=== PATIENT | female | born 1995 | race Caucasian/White ===

== ENCOUNTER 2024-04-06 23:55 | Inpatient (IN) | payer OTHER ==
[~2024-04-06] VITALS: Ht 170.2 cm; Wt 127.9 kg
[2024-04-07] MEDS ORDERED: LACTATED RINGER'S 1,000 ML IV SCH
[2024-04-07] MEDS ORDERED: miSOPROStoL 25 MCG TAB PV SCH
[2024-04-07] MEDS ORDERED: CALCIUM CARBONATE 500 MG CHEW PO PRN
[2024-04-07] MEDS ORDERED: MAGNESIUM HYDROXIDE/AL HYDROX 30 ML CUP PO PRN
[2024-04-07] MEDS ORDERED: OXYTOCIN/0.9 % SODIUM CHLORIDE 30 UNITS/500 ML BAG IV SCH (00:45)
[2024-04-07 00:49] LABS: HEMATOCRIT 38.1 % (35.0-50.0); HEMOGLOBIN 12.9 g/dL (12.0-18.0); MCH 27.3 (27-36); MCHC 33.8 g/dl (30-36); MCV 80.7 fl (81-99); RBC 4.72 M/ul (4.3-5.7); RDW 15.3 (10.5-15.0)
[2024-04-07 01:06] VITALS: BP 133/64
[2024-04-07 01:09] LABS: AMPHETAMINES, URINE NEGATIVE (NEGATIVE); BARBITURATES, URINE NEGATIVE (NEGATIVE); BENZODIAZEPINE, URINE NEGATIVE (NEGATIVE); BUPRENORPHINE, URINE NEGATIVE (NEGATIVE); CANNABINOID, URINE NEGATIVE (NEGATIVE); COCAINE, URINE NEGATIVE (NEGATIVE); ECSTASY, URINE NEGATIVE (NEGATIVE); FENTANYL, URINE NEGATIVE (NEGATIVE); METHADONE, URINE NEGATIVE (NEGATIVE); OPIATES, URINE NEGATIVE (NEGATIVE); OXYCODONE, URINE NEGATIVE (NEGATIVE); PHENCYCLIDINE, URINE NEGATIVE (NEGATIVE)
[2024-04-07 02:00] LABS: ABO A; ANTIBODY IDENTIFICATION ANTI-D; ANTIBODY SCREEN POSITIVE; RH NEGATIVE
[2024-04-07] MEDS ORDERED: fentaNYL citrate 100 MCG/2 ML VIAL IV PRN (09:00)
[2024-04-07] MEDS ORDERED: OXYTOCIN/0.9 % SODIUM CHLORIDE 500 ML IV SCH (09:00)
[2024-04-07] MEDS ORDERED: ePHEDrine KIT FOR FBC IV ONE (12:54)
[2024-04-07] MEDS ORDERED: LACTATED RINGER'S 500 ML IV PRN (13:00)
[2024-04-07] MEDS ORDERED: LACTATED RINGER'S 2,000 ML IV ONE (13:00)
[2024-04-07] MEDS ORDERED: ROPIVACAINE 0.2% 200 ML BAG EPIDURAL SCH (13:00)
[2024-04-07] MEDS ORDERED: ePHEDrine sulfate 5 MG/ML SYRINGE IV PRN (13:00)
[2024-04-07] MEDS ORDERED: dexmedeTOMIDine HCl 200 MCG/2 ML VIAL ONE (13:07)
[2024-04-07] MEDS ORDERED: ROPIVACAINE 0.2% 200 ML BAG ONE (13:07)
[2024-04-07] MEDS ORDERED: MAGNESIUM SULFATE 2 GM/50 ML BAG IV ONE (18:30)
[2024-04-07] MEDS ORDERED: ondansetron HCL 4 MG/2 ML VIAL IV SCH (20:00)
[2024-04-07] MEDS ORDERED: ondansetron HCL 4 MG/2 ML VIAL IV ONE (22:30)
[2024-04-08] MEDS ORDERED: TRANEXAMIC ACID IN NACL,ISO-OS 100 ML IV ONE (01:16)
[2024-04-08] MEDS ORDERED: METHYLERGONOVINE MALEATE 0.2 MG/ML AMP IM ONE ×2 (01:19→02:00)
[2024-04-08] MEDS ORDERED: miSOPROStoL 200 MCG TAB PR ONE (01:20)
[2024-04-08] MEDS ORDERED: TRANEXAMIC ACID 1,000 MG in SODIUM CHLORIDE 0.9% 100 ML IV ONE (01:21)
[2024-04-08] MEDS ORDERED: HYDROCODONE/ACETA 5/325 TAB PO PRN (02:00)
[2024-04-08] MEDS ORDERED: IBUPROFEN 600 MG TAB PO PRN (02:00)
[2024-04-08] MEDS ORDERED: HYDROCORTISONE ACETATE 25 MG SUPP PR PRN (02:00)
[2024-04-08] MEDS ORDERED: OXYCODONE HCL 5 MG TAB PO PRN (02:00)
[2024-04-08] MEDS ORDERED: WITCH HAZEL/GLYCERIN 1 EA PAD TOP PRN (02:00)
[2024-04-08] MEDS ORDERED: LIDOCAINE 2% VISCOUS 6 ML SYR TOP ONE ×2 (02:00)
[2024-04-08] MEDS ORDERED: miSOPROStoL 200 MCG TAB PO ONE (02:00)
[2024-04-08] MEDS ORDERED: BENZOCAINE 60 ML AEROSOL TOP PRN (02:00)
[2024-04-08] MEDS ORDERED: TRANEXAMIC ACID IN NACL,ISO-OS 1,000 MG/100 ML PIGGYBACK IV ONE (02:00)
[2024-04-08] MEDS ORDERED: ACETAMINOPHEN 325 MG TAB PO PRN (02:00)
[2024-04-08] MEDS ORDERED: MAGNESIUM HYDROXIDE 30 ML UDC PO PRN (02:00)
[2024-04-08] MEDS ORDERED: OXYTOCIN/0.9 % SODIUM CHLORIDE 500 ML IV SCH (02:00)
[2024-04-08] MEDS ORDERED: CALCIUM CARBONATE 500 MG CHEW PO PRN (02:00)
[2024-04-08] MEDS ORDERED: MAGNESIUM HYDROXIDE/AL HYDROX 30 ML CUP PO PRN (02:00)
[2024-04-08] MEDS ORDERED: OXYCODONE/APAP 5/325 TAB PO PRN (02:00)
[2024-04-08 04:10] LABS: RDW 15.1 (10.5-15.0)
[2024-04-08 04:12] LABS: BASOPHILS 0.8 % (0-2); EOSINOPHILS 0.1 % (0-6); HEMATOCRIT 33.7 % (35.0-50.0); HEMOGLOBIN 11.1 g/dL (12.0-18.0); LYMPHOCYTES 5.7 % (24-44); MCH 26.7 (27-36); MCHC 33.1 g/dl (30-36); MCV 80.6 fl (81-99); MONOCYTES 4.7 % (0-12); NEUTROPHILS 88.7 % (39-80); PLATELET COUNT 140 K/uL (140-440); RBC 4.18 M/ul (4.3-5.7)
[2024-04-08 04:19] LABS: INR 0.99 (0.80-1.30)
[2024-04-08 04:21] LABS: PARTIAL THROMBOPLASTIN TIME 28.2 Sec (22.9-41.3)
[2024-04-08] MEDS ORDERED: SENNOSIDES/DOCUSATE 1 EA TAB PO SCH (09:00)
[2024-04-09 05:42] LABS: BASOPHILS 0.6 % (0-2); EOSINOPHILS 1.5 % (0-6); HEMATOCRIT 28.8 % (35.0-50.0); HEMOGLOBIN 9.7 g/dL (12.0-18.0); MCH 27.2 (27-36); MCHC 33.8 g/dl (30-36); MCV 80.5 fl (81-99); MONOCYTES 5.9 % (0-12); PLATELET COUNT 157 K/uL (140-440); RBC 3.58 M/ul (4.3-5.7); RDW 15.3 (10.5-15.0)
[2024-04-09 07:07] LABS: ABO A; ANTIBODY SCREEN POSITIVE; FETAL HEMOGLOBIN SCREEN NEGATIVE; RH NEGATIVE; RHIG DOSE 1; RHIG STATUS CANDIDATE; RHIG VIAL 1 RG24K02-I
[2024-04-09 07:08] LABS: ANTIBODY IDENTIFICATION ANTI-D
--- NOTE | 2024-04-09 10:59 | PR ---
[facility] [address] [facility] [place], [place] [address] Signed PP Progress Notes Datetime Report Generated by CPN: 04/09/2024 10:59 SUBJECTIVE: [id number] Pain: Within Normal Limits Nausea/Vomiting: Denies Flatus: Yes Bowel Movement: No Vital Signs: [id number] Vital Signs: Reviewed; Within Normal Limits EXAM: Ongoing Cardiovascular: Normal Respiratory: Not Done Abdomen/Uterus: Normal Lochia: Normal Vulva/Perineum: Normal Breasts: Normal CVA Tenderness: Not Done Extremities: Normal Incision: Not Applicable Progress: Normal Exam Comments: Uterus: firm, non tender, 1FB below umbilicus. IMPRESSION/PLAN/PROCEDURES: [id number] Impression: Normal Progression Other Impression: PPH Plan: Continue Present Management; Discharge Procedures: None Progress Notes: No concerns today, pain well controlled. . Normal lochia. Will D/C Signing Physician: Mckenzie Leigh MD Copies: ~ *Electronically Signed* 04/09/24 1059 MCKENZIE LEIGH MD PATIENT NAME: OTF LOPEZ [place] PROGRESS NOTE DATE OF : [birth year] PHYSICIAN: MCKENZIE LEIGH MD RPT #: [id number] REPORT IS CONFIDENTIAL AND NOT TO BE RELEASED WITHOUT AUTHORIZATION
== END 2024-04-09 16:50 | disposition home or self-care (01) | DRG 768 ==
LOC: FBC 04-07 00:02
PROVIDERS: ADMIT Obstetrics & Gynecology; ATTEND Obstetrics & Gynecology
PROC: 0DQR0ZZ Repair Anal Sphincter, Open Approach (ICD-10-PCS; principal; 2024-04-08)
PROC: 3E0R3BZ Introduction of Anesthetic Agent into Spinal Canal, Percutaneous Approach (ICD-10-PCS; principal; 2024-04-08)
PROC: 10E0XZZ Delivery of Products of Conception, External Approach (ICD-10-PCS; principal; 2024-04-08)
PROC: 00HU33Z Insertion of Infusion Device into Spinal Canal, Percutaneous Approach (ICD-10-PCS; principal; 2024-04-08)
PROC: 10907ZC Drainage of Amniotic Fluid, Therapeutic from Products of Conception, Via Natural or Artificial Opening (ICD-10-PCS; principal; 2024-04-08)
DX: O48.0 Post-term pregnancy (principal); Z37.0 Single live birth; O72.1 Other immediate postpartum hemorrhage; O70.20 Third degree perineal laceration during delivery, unspecified; Z3A.40 40 weeks gestation of pregnancy; Z91.040 Latex allergy status; O69.81X0 Labor and delivery complicated by cord around neck, without compression, not applicable or unspecified; O76 Abnormality in fetal heart rate and rhythm complicating labor and delivery; O99.214 Obesity complicating childbirth; Z79.899 Other long term (current) drug therapy
CPT/HCPCS: 01960; 36415; 80307; 83030; 85025; 85027; 85379; 85384; 85610; 85730; 86850; 86870; 86900; 86901; A9270; J2210; J2405; J2790; J2795; J7121

== ENCOUNTER 2024-04-15 14:41 | Emergency (ER) | payer OTHER ==
[~2024-04-15] VITALS: Ht 182.9 cm; Wt 125.2 kg
[2024-04-15 15:17] LABS: BASOPHILS 0.2 % (0-2); EOSINOPHILS 0.1 % (0-6); HEMATOCRIT 31.6 % (35.0-50.0); HEMOGLOBIN 10.4 g/dL (12.0-18.0); MCH 26.7 (27-36); MCHC 32.8 g/dl (30-36); MCV 81.3 fl (81-99); NEUTROPHILS 91.7 % (39-80); PLATELET COUNT 206 K/uL (140-440); RBC 3.88 M/ul (4.3-5.7); RDW 15.7 (10.5-15.0)
[2024-04-15] MEDS ORDERED: PRENATAL MULTI1 EAC3 PO (15:24)
[2024-04-15] MEDS ORDERED: TYLENOL EXTRA500 MG PO (15:25)
[2024-04-15] MEDS ORDERED: IBUPROFEN800 MG PO (15:25)
[2024-04-15 15:34] LABS: ALBUMIN 2.8 g/dL (3.4-5.0); ALBUMIN/GLOBULIN RATIO 0.68 (1.1-2.4); ANION GAP 14.7 (7-21); BILIRUBIN, TOTAL 0.6 ng/dL (0.2-1.0); BUN/CREATININE RATIO 11.68 (6.0-28.6); CALCIUM 8.7 mg/dL (8.5-10.1); CREATININE, SERUM 0.77 mg/dL (0.55-1.02); POTASSIUM 3.7 mmol/L (3.5-5.1); PROTEIN, TOTAL 6.9 g/dL (6.4-8.2)
[2024-04-15 15:36] LABS: LACTIC ACID, BLOOD 0.9 mmol/L (0.4-2.0)
[2024-04-15 16:11] LABS: BILIRUBIN, URINE NEGATIVE (negative); BLOOD/HGB, URINE LARGE (Negative); KETONE, URINE NEGATIVE (Negative); LEUK ESTERASE, URINE MODERATE (negative); NITRITE, URINE NEGATIVE (negative)
[2024-04-15 16:18] LABS: CRYSTALS, URINE NONE SEEN (0-1+); RED BLOOD CELLS, URINE >50 /hpf (0-5); WHITE BLOOD CELLS, URINE 21-40 /HPF (0-5)
[2024-04-15 16:20] LABS: BACTERIA, URINE 1+ /hpf (negative); CASTS, URINE NONE SEEN \\lpf; COLLECTION TYPE, URINE CLEAN CATCH; REFLEX CULTURE, URINE Yes (No)
[2024-04-15] MEDS ORDERED: CEFTRIAXONE/SODIUM CHLORIDE 1 GM/100 ML PIGGYBACK IV ONE (17:00)
[2024-04-15] MEDS ORDERED: IBUPROFEN 600 MG TAB PO ONE (17:15)
[2024-04-15 17:19] LABS: CORONAVIRUS COVID-19 AG NEGATIVE (NEGATIVE); INFLUENZA A AG NEGATIVE (NEGATIVE); INFLUENZA B AG NEGATIVE (NEGATIVE)
[2024-04-15] MEDS ORDERED: CEPHALEXIN500 MG PO (18:06)
[2024-04-15 18:26] VITALS: BP 129/77
== END 2024-04-15 18:24 | disposition home or self-care (01) ==
LOC: ED 14:41
PROVIDERS: Emergency Medicine
DX: O86.20 Urinary tract infection following delivery, unspecified (principal); N39.0 Urinary tract infection, site not specified; Z91.040 Latex allergy status; Z79.899 Other long term (current) drug therapy
CPT/HCPCS: 36415; 71045; 80053; 81001; 83605; 85025; 87088; 96365; 99283-25; A9270; J0696